=== PATIENT | male | born 1940 | race Caucasian/White ===

== ENCOUNTER → 2017-02-14 | Outpatient (CLI) | payer OTHER ==
[~2017-02-14] MED LIST: ASPIRIN PO; HCTZ PO; IMDUR PO; LISINOPRIL PO; METFORMIN PO; NORVASC PO; PROPRANOLOL PO; TIMOPTIC2.5 ML OD; ZOCOR PO
--- NOTE | ~2017-02-14 | US135 ---
[facility] A Service of [facility] RADIOLOGY TEXT RESULTS PATIENT: RALPH GREENWOOD LOCATION: CNIV : 41 UNIT #: [id number] AGE: [address]: DIXON HAWKINS SEX: M ORDER DR: [id number] [facility] [address] [place], [place] [address] [id number] O MR#: [id number] Acc #: [id number] NAME: RALPH GREENWOOD : 1940 SEX: M STUDY DATE/TIME: 02/14/2017 8:13 UNIT: CNIV ROOM: STUDY DESCRIPTION: US U/L Ext Art Study Comp Solomon Ordering Physician: Physician Non-Staff Primary Care Physician: Chacho Peguero M.D. MEDICAL IMAGING REPORT This report is preliminary unless electronic signature is present EXAM Lower extremity arterial segmental pressures 02/14/2017 HISTORY Claudication. FINDINGS The right brachial pressure is 189 and the left brachial pressure is 170. The right upper thigh pressure is 214, lower thigh 185, calf 114, dorsalis pedis 89, posterior tibial 89, and toe 54, for an ankle-brachial index of 0.47. The left upper thigh pressure is 209, lower thigh 211, calf 187, dorsalis pedis 181, posterior tibial 190, and toe 135, for an ankle-brachial index of 1.01. Doppler waveform analysis indicates a biphasic signal in the posterior tibial and dorsalis pedis arteries on the left and a monophasic signal in the posterior tibial and dorsalis pedis arteries on the right. Pulse volume recording tracings demonstrate a good amplitude signal at all levels in the left leg. There is significant dampening of the signal from the above-knee to calf location on the right. IMPRESSION Severe ischemia of the right leg with an ankle-brachial index of 0.47. 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 Normal perfusion to the left leg with an ankle-brachial index of 1.01. [facility] A Service of [facility] RADIOLOGY TEXT RESULTS PATIENT: RALPH GREENWOOD LOCATION: CNIV : 41 UNIT #: [id number] AGE: [address]: DIXON HAWKINS SEX: M ORDER DR: Dictated by... Ney Almodovar M.D. THIS IS AN ELECTRONICALLY VERIFIED REPORT Ney Almodovar M.D. at 02/27/2017 11:45 AM SBS/pcl TD: 02/14/2017 21:24 JOB #: [id number] MEDICAL IMAGING REPORT Page 1 of 1 COPY
--- NOTE | ~2017-02-14 | US37 ---
[facility] A Service of [facility] & [facility] RADIOLOGY TEXT RESULTS PATIENT: RALPH GREENWOOD LOCATION: CNIV : 41 UNIT #: [id number] AGE: [address]: DIXON HAWKINS SEX: M ORDER DR: [id number] [facility] [address] [place], [place] [address] [id number] O MR#: [id number] Acc #: [id number] NAME: RALPH GREENWOOD : 1940 SEX: M STUDY DATE/TIME: 02/14/2017 9:35 UNIT: CNIV ROOM: STUDY DESCRIPTION: US Carotid W/Doppler Bilateral Ordering Physician: Physician Non-Staff Primary Care Physician: Chacho Peguero M.D. MEDICAL IMAGING REPORT This report is preliminary unless electronic signature is present EXAM Carotid duplex scan 02/14/2017 HISTORY Carotid stenosis. FINDINGS The right common carotid artery has a small amount of dense plaque. There is dense heterogeneous plaque in the right carotid bulb which extends up into the proximal internal and external carotid arteries. Peak systolic velocity in the proximal right internal carotid artery is 93 cm/sec with an end-diastolic velocity of 18 cm/sec. The ICA:CCA ratio on the right is 1.33. Peak systolic velocity in the right external carotid artery is 104 cm/sec. The right vertebral artery is patent with antegrade flow. The left common carotid artery has a small amount of dense plaque. There is a large amount of dense heterogeneous plaque in the left carotid bulb which extends up into the proximal internal and external carotid arteries. Peak systolic velocity in the proximal left internal carotid artery is 149 cm/sec with an end-diastolic velocity of 29 cm/sec. The ICA:CCA ratio on the left is 1.98. Peak systolic velocity in the left external carotid artery is 135 cm/sec. The left vertebral artery is patent with antegrade flow. IMPRESSION Small amount of plaque, but no significant stenosis (less than 50%) in the right internal carotid artery. No significant stenosis of the right external carotid artery. Moderate stenosis (50-69%) of the left internal carotid artery. Significant stenosis of the left external carotid artery. Patent vertebral arteries bilaterally with antegrade flow. STS. [facility] A Service of [facility] & [facility] RADIOLOGY TEXT RESULTS PATIENT: RALPH GREENWOOD LOCATION: CNIV : 41 UNIT #: [id number] AGE: [address]: DIXON HAWKINS SEX: M ORDER DR: Dictated by... Ney Almodovar M.D. THIS IS AN ELECTRONICALLY VERIFIED REPORT Ney Almodovar M.D. at 02/27/2017 11:45 AM SBS/pcl TD: 02/14/2017 21:29 JOB #: [id number] MEDICAL IMAGING REPORT Page 1 of 1 COPY
== END | disposition home or self-care (01) ==
LOC: CNIV 07:53
DX: I65.23 Occlusion and stenosis of bilateral carotid arteries (principal); I73.9 Peripheral vascular disease, unspecified; I99.8 Other disorder of circulatory system
CPT/HCPCS: 93880; 93923